=== PATIENT | female | born 1975 ===

== ENCOUNTER 2019-08-25 08:49 | Outpatient (REF) | payer MEDICAID, SELFPAY ==
[2019-08-26 10:59] LABS: Campylobacter PCR Negative (Negative); Salmonella PCR Negative (Negative); Shiga Toxin PCR Negative (Negative); Shigella/Enteroinvasive Ecoli Negative (Negative)
== END 2019-08-25 09:09 ==
LOC: LBN 08:49
PROVIDERS: Visit Provider Naturopath
DX: B82.9 Intestinal parasitism, unspecified (principal); K63.89 Other specified diseases of intestine; R10.813 Right lower quadrant abdominal tenderness; K21.9 Gastro-esophageal reflux disease without esophagitis; R11.0 Nausea
CPT/HCPCS: 87505; 87177